=== PATIENT | male | born 1945 | race Caucasian/White ===

== ENCOUNTER 2017-06-14 07:19 | Day surgery (SDC) | payer MEDICARE ==
--- NOTE | 2017-06-04 21:31 | HP ---
CC: Juwan Martinez MD * HISTORY AND PHYSICAL: DATE OF PLANNED ADMISSION AND SURGERY: 06/14/17 HISTORY OF PRESENT ILLNESS: Mr. Millan is a 72-year-old white male who is admitted with a tumor of the left trigone for transurethral resection and placement of left ureteral stent. Mr. Millan was worked up in the office because of symptoms of bladder outlet obstruction, microscopic hematuria and elevated PSA. He had a renal ultrasound , which showed bilateral simple cysts. Cystoscopy showed a penile urethral stricture, and a flat tumor overlying the left trigone and the left ureteral orifice. There were no other suspicious lesions seen. Moderate diffuse trabeculations were noted. The patient is admitted for resection of the above lesion, and because the tumor is overlying the left ureteral orifice, he will need placement of left ureteral stent. The patient had urine cytology in the office, which was negative. PAST MEDICAL HISTORY AND SYSTEM REVIEW: The patient is followed by Dr. Martinez. He has history of atrial fibrillation but no embolic phenomenon. He has been maintained on Xarelto. He has type 2 diabetes mellitus. MEDICATIONS: He is maintained on the following medications: 1. Lipitor 20 mg daily. 2. Potassium chloride. 3. Ramipril 10 mg daily. 4. Xarelto 20 mg daily. 5. Sotalol 80 mg twice a day. 6. Tamsulosin 0.4 mg daily. ALLERGIES: He denies any allergies to medications. The patient had an elevated PSA of 9; however, rectal examination showed a moderately enlarged but non-suspicious prostate. He gives past history of prostatitis. PHYSICAL EXAMINATION GENERAL: Overweight white male, who looks his age. VITAL SIGNS: Blood pressure 120/80, pulse 54. LUNGS: Clear. HEART: Regular and rhythmic. ABDOMEN: Soft. No masses, no tenderness, and no CVA tenderness. GENITALIA: External genitalia is not circumcised. No phimosis. No penile lesions. Normal testes and no hernias. RECTAL: Showed an enlarged but non-suspicious prostate. IMPRESSION: 1. 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 2. Bladder outlet obstruction, improved on tamsulosin 0.4 mg daily. 3. Elevated PSA with past history of prostatitis and non-suspicious prostate on rectal exam. 4. Atrial fibrillation, on anticoagulation with Xarelto. No history of embolic phenomenon. 5. Hypertension, well controlled. PLAN: For cystoscopy, transurethral resection of the bladder tumor, and placement of left ureteral stent. I discussed the plans with Dr. Martinez the pt's PCP, he felt that the patient is in good medical condition and does not need to have preoperative cardiac clearance and he can stop the Xarelto 3 or 4 days prior to the planned procedure with low risk of developing an embolic phenomenon. I discussed the above plans in detail with the patient and his and all their questions were answered. PSA will be repeated at a later date. [id number]/[facility] #: [id number] MTDD
[~2017-06-14 07:19] MED LIST: Buffered Lidocaine 0.9% SYRIN* 5 ML/SYR SYRINGE INTRADERM ONE; Buffered Lidocaine 0.9% SYRIN* 5 ML/SYR SYRINGE ONE; cefTRIAXone VIAL(*) 1,000 MG in NS 0.9% 50 ML* 50 ML IVPB ONE; cefTRIAXone(*) 1 GM ADVAN ONE
[2017-06-14] MEDS ORDERED: Iohexol 180 (CONTRAST) 10 ML SDV IV ONE (08:47)
[2017-06-14] MEDS ORDERED: Propofol* 10 MG/ML 20 ML BTL IV PUSH ONE (08:55)
[2017-06-14] MEDS ORDERED: fentaNYL* 50 MCG/ML 2 ML VIAL (100 MCG VIAL) ONE (08:55)
[2017-06-14] MEDS ORDERED: Lidocaine 2% PF * 5 ML VIAL ONE (08:55)
[2017-06-14] MEDS ORDERED: oxyCODONE/Acetamin 5/325 MG* TAB PO PRN (09:29)
[2017-06-14] MEDS ORDERED: fentaNYL* 50 MCG/ML 2 ML VIAL (100 MCG VIAL) IV PRN (09:29)
[2017-06-14] MEDS ORDERED: DiMENhydriNATE IV* 50 MG/ML VIAL IV PUSH PRN (09:29)
[2017-06-14] MEDS ORDERED: Lidocaine 2% JELLY* 6 ML JELLY TOPICAL ONE (10:59)
[2017-06-14] MEDS ORDERED: mitoMYcin PWD* 40 MG in Sterile Water for Inj* 40 ML IRRIGATION ONE (12:00)
[2017-06-14 13:23] VITALS: BP 129/70
--- NOTE | 2017-06-15 00:54 | OP ---
CC: Dr. Juwan Martinez * DATE OF OPERATION: 06/14/17 - [facility] DATE OF : 41 SURGEON: Cb Mcdowell MD ANESTHESIOLOGIST: Dr. Tyler Pina. ANESTHESIA: General. PRE-OP DIAGNOSES: 1. Urethral stricture. 2. Bladder tumor. POST-OP DIAGNOSES: 1. Extensive urethral strictures (penile and bulbar urethrae). 2. Bladder tumor, left trigone, 1.5 cm. OPERATIVE PROCEDURE: Cystoscopy, internal urethrotomies (penile and bulbar urethrae), Excisional biopsies and fulguration of bladder tumor, left trigone, 1.5 cm. INDICATION FOR PROCEDURE: Mr. Millan is a 72-year-old white male, who was worked up in the office because of microscopic hematuria and bladder outlet obstruction. His renal ultrasound was normal. Cystoscopy showed urethral strictures and there was a flat tumor overlying the left trigone. The patient was admitted for the above procedure. PATHOLOGY: There was extensive strictures involving the whole penile urethra and the distal part of the bulbar urethra. The strictures were dense and tight. The prostatic urethra measured 2.5 cm in length and [id number] obstruction by prostate enlargement. Examination of the bladder showed moderate diffuse bladder trabeculations. There was a 1.5 cm flat tumor just distal to the left trigone. The ureteral orifice was not involved with the tumor. No other suspicious bladder lesion seen. No calculi or diverticula were noted. DESCRIPTION OF PROCEDURE: After successful general anesthesia, the patient was placed in the lithotomy position and was prepped and draped for cystoscopy. Attempt at introducing the 22-cystoscope was not successful because of the urethral stricture. The direct internal urethrotome was then introduced inside the urethral meatus. A flexible-tip guidewire was passed through the urethrotome and positioned inside the bladder. Using the cold knife, the strictures, which were involving the whole length of the penile urethra, were incised at 12 o'clock. The stricture in the bulbar urethra was similarly incised. The incision was carried through the whole thickness of the strictures , the corpus spongiosum was not entered and there was no significant bleeding from the incisions. The scope was then successfully introduced inside the bladder. It was then removed incising additional strictures on the way out. A 22-cystoscope was then introduced under direct vision and the whole urethra and the prostatic urethra and the bladder were then inspected. The findings in the bladder were noted. The left orifice was noted to be at the safe distance from the tumor and no stent was required. The resectoscope could not be introduced in the urethra because of the degree of the stricture. The 22- Japanese cystoscope was then re-introduced. Using the biopsy forceps, the tumor in the left trigone was excised down to muscle. The site of the excision and the surrounding tissue was then thoroughly fulgurated with the Bugbee electrode achieving very good hemostasis. A final inspection showed no residual tumor, good hemostasis, and both ureteral orifices were intact. No other bladder lesions were noted. The cystoscope was then removed and a size 20-Japanese De La O catheter was passed inside the bladder and the balloon inflated with 15 cc of water. The patient tolerated the procedures well and left the operating room in good condition. The blood loss was minimal and the specimen was tumor of left trigone. The plan is to give the patient 1 dose of intravesical mitomycin C in the PACU. He will be discharged home with the De La O catheter, which will be kept in place for 4 days. [id number] #: [id number] MTDD
== END 2017-06-14 13:24 | disposition home or self-care (01) ==
LOC: OR 07:19
PROVIDERS: ATTEND Urology
DX: C67.0 Malignant neoplasm of trigone of bladder (principal); N35.9 Urethral stricture, unspecified; N40.0 Benign prostatic hyperplasia without lower urinary tract symptoms; N32.0 Bladder-neck obstruction; I48.91 Unspecified atrial fibrillation; Z79.01 Long term (current) use of anticoagulants; E11.9 Type 2 diabetes mellitus without complications; I10 Essential (primary) hypertension
CPT/HCPCS: 88305; J0696; J2704; J3010; J9280